=== PATIENT | male | born 1945 | race Caucasian/White ===

== ENCOUNTER 2017-05-16 12:26 | Emergency (ER) | payer MEDICARE, OTHER ==
[~2017-05-16] VITALS: Ht 170.2 cm; Wt 81.3 kg
[~2017-05-16 12:26] MED LIST: ASPI81 PO; DEPOTESTOSTERONE; EXFORGE; FENO50TA PO; PREG75 PO; PROT40TA PO
[2017-05-16 12:37] VITALS: BP_SYST 175; BP_DIAS 70; BP_DIAS 79; PULSE 77; RESP 18; TEMP 98.2; O2SAT 95
[2017-05-16] MEDS ORDERED: HYDR-3580 PO (13:17)
[2017-05-16] MEDS ORDERED: LEXA10TA PO (13:17)
[2017-05-16] MEDS ORDERED: VALS1TAB64 PO (13:17)
[2017-05-16] MEDS ORDERED: TAMS5CAP PO (13:17)
[2017-05-16] MEDS ORDERED: CLON1 PO (13:17)
[2017-05-16] MEDS ORDERED: LYRI200C PO (13:17)
[2017-05-16] MEDS ORDERED: TEST1INJ3 IM (13:17)
[2017-05-16] MEDS ORDERED: ESOM1CAP16 PO (13:17)
--- NOTE | 2017-05-16 13:39 | PD ---
HPI Chief Complaint: Hypertension Time Seen by Provider: 13:19 Travel History International Travel<30 days: No Contact w/Intl Traveler<30days: No Traveled to known affect area: No History of Present Illness HPI This 72-year-old male says he has not been feeling well for the last week or so. He's had intermittent nausea. He had a shooting pain in the left temporal area yesterday but is not having it now. He says he been not been nauseated for a few days. He has a history of GERD and takes this omeprazole. He also has a history of hypertension and is on valsartan 80 mg twice a day. He has been on the same dose for a while. He has been checking his blood pressure at home and his systolics have been running 150-160 with normal diastolics. His systolic went as high as 200 earlier today. He says he has been eating well. He is under stress . His systolic blood pressure was 200 today when he decided to come in [facility] Past Medical History Arthritis: Yes Heart Rhythm Problems: No Cardiac Catheterization: No Cardiovascular Problems: No High Cholesterol: Yes Congestive Heart Failure: No Diabetes: No Diminished Hearing: No Gastrointestinal Disorders: Yes GERD: Yes Genitourinary: Yes (HISTORY OF RENAL FAILURE THAT HAS RESOLVED ACCORDING TO PT) Hypertension: Yes Musculoskeletal: Yes Neurologic: Yes (NEUROPATHY) Respiratory: Yes Myocardial Infarction: No Sleep Apnea: Yes Tetanus Vaccination: < 5 Years Influenza Vaccination: Yes Past Surgical History Appendectomy: Yes (1993) Coronary Artery Bypass Graft: No Genitourinary Surgery: Yes (TURP) Other Surgery: Yes (RHINOPLASTY) Social History Alcohol Use: Yes (SOCIAL) Tobacco Use: No Substance Use: No Allergies-Medications (Allergen,Severity, Reaction): Coded Allergies: No Known Allergies (Verified Allergy, Mild, 05/16/17) Reported Meds & Prescriptions Reported Meds & Active Scripts Active Reported Testosterone Cypionate Inj (Testosterone Cypionate) 100 Mg/Ml Inj 100 Mg IM DIRECTED Lexapro (Escitalopram Oxalate) 10 Mg Tab 10 Mg PO DAILY Flomax (Tamsulosin HCl) 0.4 Mg Cap 0.4 Mg PO BID Hydrocodone-Acetamin 7.5-325 (Hydrocodone/Acetaminophen) 7.5 Mg-325 Mg Tablet 1 Tab PO HS Klonopin (Clonazepam) 1 Mg Tab 1 Mg PO HS Lyrica (Pregabalin) 200 Mg Cap 200 Mg PO DAILY Valsartan 80 Mg Tab 80 Mg PO HS Esomeprazole DR 40 Mg Capdr 40 Mg PO DAILY Review of Systems General / Constitutional: No: Fever, Chills Eyes: No: Diploplia, Blurred Vision HENT: Positive: Headaches, No: Vertigo Cardiovascular: No: Chest Pain or Discomfort, Palpitations Respiratory: No: Cough, Shortness of Breath Gastrointestinal: Positive: Nausea, No: Vomiting Genitourinary: No: Urgency, Frequency Musculoskeletal: No: Myalgias Skin: No Rash, No Itching Endocrine: No: Heat Intolerance Hematologic/Lymphatic: No: Easy Bruising Physical Exam Narrative GENERAL: Well-developed male SKIN: Focused skin assessment warm/dry. HEAD: Atraumatic. Normocephalic. EYES: Pupils equal and round. No scleral icterus. No injection or drainage. ENT: No nasal bleeding or discharge. Mucous membranes pink and moist. NECK: Trachea midline. No JVD. CARDIOVASCULAR: Regular rate and rhythm. No murmur appreciated. RESPIRATORY: No accessory muscle use. Clear to auscultation. Breath sounds equal bilaterally. GASTROINTESTINAL: Abdomen soft, non-tender, nondistended. Hepatic and splenic margins not palpable. MUSCULOSKELETAL: No obvious deformities. No clubbing. No cyanosis. No edema. NEUROLOGICAL: Awake and alert. No obvious cranial nerve deficits. Motor grossly within normal limits. Normal speech. PSYCHIATRIC: Appropriate mood and affect; insight and judgment normal. Data Data Last Documented VS Vital Signs Date Time Temp Pulse Resp B/P (MAP) Pulse Ox O2 Delivery O2 Flow Rate FiO2 05/16/17 14:37 75 16 168/73 (104) 96 Room Air 05/16/17 12:37 98.2 Orders Orders Complete Blood Count With Diff (05/16/17 13:36) Comprehensive Metabolic Panel (05/16/17 13:36) [place] Sedimentation Rate (05/16/17 13:36) Labs Laboratory Tests Test 05/16/17 14:00 White Blood Count 6.6 TH/MM3 Red Blood Count 6.39 MIL/MM3 Hemoglobin 15.3 GM/DL Hematocrit 47.9 % Mean Corpuscular Volume 74.9 FL Mean Corpuscular Hemoglobin 23.9 PG Mean Corpuscular Hemoglobin Concent 31.9 % Red Cell Distribution Width 14.5 % Platelet Count 152 TH/MM3 Mean Platelet Volume 9.0 FL Neutrophils (%) (Auto) 86.9 % Lymphocytes (%) (Auto) 8.7 % Monocytes (%) (Auto) 3.8 % Eosinophils (%) (Auto) 0.2 % Basophils (%) (Auto) 0.4 % Neutrophils # (Auto) 5.7 TH/MM3 Lymphocytes # (Auto) 0.6 TH/MM3 Monocytes # (Auto) 0.3 TH/MM3 Eosinophils # (Auto) 0.0 TH/MM3 Basophils # (Auto) 0.0 TH/MM3 CBC Comment AUTO DIFF Differential Comment AUTO DIFF CONFIRMED Platelet Estimate NORMAL Platelet Morphology Comment NORMAL Erythrocyte Sedimentation Rate 1 mm/hr Blood Urea Nitrogen 12 MG/DL Creatinine 0.76 MG/DL Random Glucose 107 MG/DL Total Protein 7.2 GM/DL Albumin 4.0 GM/DL Calcium Level 8.4 MG/DL Alkaline Phosphatase 80 U/L Aspartate Amino Transf (AST/SGOT) 17 U/L Alanine Aminotransferase (ALT/SGPT) 30 U/L Total Bilirubin 0.8 MG/DL Sodium Level 139 MEQ/L Potassium Level 3.9 MEQ/L Chloride Level 105 MEQ/L Carbon Dioxide Level 24.7 MEQ/L Anion Gap 9 MEQ/L Estimat Glomerular Filtration Rate 100 ML/MIN [facility] Medical Decision Making Medical Screen Exam Complete: Yes Emergency Medical Condition: Yes Medical Record Reviewed: Yes Differential Diagnosis Differential includes hypertension, electrolyte imbalance, temporal arteritis Narrative Course Sedimentation rate is 1 which rules out temporal arteritis. His lab work is unremarkable. He is here with a diary of his recent blood pressures and he has multiple readings over 150 as well as readings of 200 today. I will recommend that he increase his valsartan from 2 80 mg tablets to 3 80 mg tablets daily Diagnosis Primary Impression: Hypertension Disposition: 01 DISCHARGE HOME Condition: Stable Steve Jeffery MD May 16, 2017 13:39
[2017-05-16 14:17] LABS: CHLORIDE 105 MEQ/L (98-107); POTASSIUM 3.9 MEQ/L (3.5-5.1); SODIUM (NA) 139 MEQ/L (136-145)
[2017-05-16 14:22] LABS: ANION GAP 9 MEQ/L (5-15); BICARBONATE 24.7 MEQ/L (21.0-32.0); BLOOD UREA NITROGEN 12 MG/DL (7-18)
[2017-05-16 14:25] LABS: ALT (GPT) 30 U/L (12-78); AST (GOT) 17 U/L (15-37); GLOMERULAR FILTRATION RATE 100 ML/MIN (>89)
[2017-05-16 14:27] LABS: AUTOMATED NEUTROPHIL # 5.7 TH/MM3 (1.8-7.7); BASOPHIL % 0.4 % (0.0-2.0); EOSINOPHIL % 0.2 % (0.0-4.0); HEMATOCRIT 47.9 % (39.0-51.0); LYMPH % 8.7 % (9.0-44.0); LYMPHOCYTE # 0.6 TH/MM3 (1.0-4.8); MEAN CELL VOLUME 74.9 FL (80.0-100.0); MEAN CORPUSCULAR HEMOGLOBIN 23.9 PG (27.0-34.0); MEAN CORPUSCULAR HGB CONC 31.9 % (32.0-36.0); MONO % 3.8 % (0.0-8.0); NEUT % 86.9 % (16.0-70.0); PLATELET COUNT 152 TH/MM3 (150-450); RED BLOOD COUNT 6.39 MIL/MM3 (4.50-5.90); RED CELL DISTRIBUTION WIDTH 14.5 % (11.6-17.2); TOTAL BILIRUBIN ADULT 0.8 MG/DL (0.2-1.0); WHITE BLOOD COUNT 6.6 TH/MM3 (4.0-11.0)
[2017-05-16 14:30] LABS: ALKALINE PHOSPHATASE 80 U/L (45-117); HEMO FLAGS AUTO DIFF
[2017-05-16 14:37] VITALS: BP 168/73; PULSE 75; RESP 16; O2SAT 96
[2017-05-16 15:07] LABS: PLATELET ESTIMATE SMEAR NORMAL (NORMAL); PLATELET MORPHOLOGY NORMAL (NORMAL); SCAN/DIFF AUTO DIFF CONFIRMED
== END 2017-05-16 15:42 | disposition home or self-care (01) ==
LOC: PHED 12:26
DX: I10 Essential (primary) hypertension (principal); R51 Headache; R53.81 Other malaise; E78.00 Pure hypercholesterolemia, unspecified; G47.30 Sleep apnea, unspecified; Z87.39 Personal history of other diseases of the musculoskeletal system and connective tissue; Z87.19 Personal history of other diseases of the digestive system; Z87.448 Personal history of other diseases of urinary system; Z86.69 Personal history of other diseases of the nervous system and sense organs
CPT/HCPCS: 80053; 85025; 85652; 99283